=== PATIENT | female | born 1985 | race Two or more races ===

== ENCOUNTER 2018-10-29 12:10 | Outpatient (CLI) | payer OTHER | END 2018-10-29 12:14 | disposition home or self-care (01) | LOC: RAD 12:10 | DX: M54.2 Cervicalgia (principal); M99.01 Segmental and somatic dysfunction of cervical region; M62.838 Other muscle spasm; M99.02 Segmental and somatic dysfunction of thoracic region; M99.03 Segmental and somatic dysfunction of lumbar region; M51.16 Intervertebral disc disorders with radiculopathy, lumbar region ==

== ENCOUNTER 2022-07-14 10:30 | Outpatient (CLI) | payer OTHER | END 2022-07-14 10:31 | disposition home or self-care (01) | LOC: NUCLEAR 10:30 | PROVIDERS: ATTEND Internal Medicine Clinical Cardiac Electrophysiology | DX: I34.9 Nonrheumatic mitral valve disorder, unspecified (principal); R00.2 Palpitations ==

== ENCOUNTER 2024-04-30 20:19 | Emergency (ER) | payer OTHER ==
[~2024-04-30] VITALS: Ht 180.3 cm; Wt 63.5 kg
[2024-04-30] MEDS ORDERED: hydrOXYzine PAMOATE 50 MG CAPSULE PO STA (21:07)
[2024-04-30 21:44] LABS: HEMATOCRIT 43.8 % (36.0-45.00); HEMOGLOBIN 14.9 g/dL (12.0-15.00); MEAN CELL VOLUME 89.2 fL (80.00-100.00); MEAN CORPUSCULAR HEMOGLOBIN 30.4 pg (27.00-32.0); MEAN CORPUSCULAR HGB CONC 34.1 g/dl (32.0-36.0); PLATELET COUNT 274 K/uL (150-450); RED BLOOD COUNT 4.91 M/uL (4.00-6.00); RED CELL DISTRIBUTION WIDTH 13.1 % (11.5-14.5)
[2024-04-30 22:11] LABS: CALCIUM 9.5 mg/dL (8.5-10.1); CREATININE SERUM 0.81 mg/dL (0.55-1.02); GFR 79.56; POTASSIUM 4.04 mEq/L (3.5-5.1)
== END 2024-04-30 22:24 | disposition home or self-care (01) ==
LOC: ER 20:19
PROVIDERS: General Practice
DX: R00.2 Palpitations (principal); F41.9 Anxiety disorder, unspecified